=== PATIENT | male | born 1980 | race Caucasian/White ===

== ENCOUNTER 2022-12-23 18:06 | Emergency (ER) | payer MEDICAID ==
[~2022-12-23] VITALS: Ht 185.4 cm; Wt 160.0 kg
[2022-12-23 18:12] VITALS: BP 169/87; PULSE 96; RESP 18; TEMP 97.8; O2SAT 96
[2022-12-23] MEDS ORDERED: AMOX-117 PO (20:47)
[2022-12-23] MEDS ORDERED: amox tr/potassium clavulanate 875/125mg TAB PO ONE (20:50)
== END 2022-12-23 21:13 | disposition home or self-care (01) ==
LOC: ER 18:07
DX: K02.9 Dental caries, unspecified (principal); K08.89 Other specified disorders of teeth and supporting structures; Z91.013 Allergy to seafood; Z79.2 Long term (current) use of antibiotics
CPT/HCPCS: 99283